=== PATIENT | male | born 1995 | race Hispanic/Latino ===

== ENCOUNTER 2018-07-05 21:52 | Emergency (ER) | payer BC, SELFPAY ==
--- NOTE | 2018-07-05 23:14 | RAD ---
LEFT HAND THREE VIEWS: 07/05/2018 FINDINGS: Bony fragments are seen medial to the first metacarpophalangeal joint. These appear to be some fragm entation of the sesamoid bones in the flexor pollicis brevis. I suspect a fracture of these sesamoid bones, particularly the medial sesamoid. The joint surfaces themselves seem normal. I cannot detec t any areas at the base of the proximal phalanx that appear chipped, as the phalanx itself appears in tact on all margins. The remainder of the hand and wrist appears normal. IMPRESSION: Probable sesamoid fractures at the first metacarpophalangeal joint. Orthopedic referral recommended. CODE T POS: HOME
== END 2018-07-05 22:45 | disposition home or self-care (01) ==
LOC: BURERS 21:52
DX: S63.601A Unspecified sprain of right thumb, initial encounter (principal); V86.99XA Unspecified occupant of other special all-terrain or other off-road motor vehicle injured in nontraffic accident, initial encounter
CPT/HCPCS: 99283